=== PATIENT | female | born 1980 | race Caucasian/White ===

== ENCOUNTER 2017-06-08 05:28 | Day surgery (SDC) | payer BC ==
[~2017-06-08] VITALS: Ht 165.1 cm; Wt 93.0 kg
--- NOTE | ~2017-06-08 | O ---
[facility] [place] [address] [place] [address] OPERATIVE REPORT Name: CHRISTOPHER GREENWOOD I Room #: DEP [facility]..#: [id number] Admission: 06/08/17 Attend Phys: Miles Crisostomo MD Discharge: 06/08/17 Date of : 82 Report #: [id number] THIS REPORT FOR: //name// CC: Jo Ann Crisostomo DATE OF SERVICE: 06/08/2017 PREOPERATIVE DIAGNOSIS: Open wound in the left upper calf. POSTOPERATIVE DIAGNOSIS: Open wound in the left upper calf. PROCEDURES PERFORMED: Split thickness skin graft to open wound. Donor site left lateral upper thigh. SURGEON: Miles Crisostomo MD ANESTHESIA: General anesthesia. ESTIMATED BLOOD LOSS: 5 mL. PROCEDURE NOTE: With the patient under general anesthesia in the lateral position with endotracheal tube, the left leg was prepped and draped in sterile fashion. The wound was evaluated and is clean. There was a little and small amount of necrotic tissues underneath there, which I debrided. I do not see any track or pockets under this area. In this area, the patient is having some burning pain, probably just because of the movement here. Dermatome was then used to harvest the skin. The dermatome machine; however failed. It did not have any power going to it. There were no other dermatome in the hospital. Waited until the dermatome machine was obtained from another hospital. Once this was done, skin graft was then obtained. The thickness was appropriate measured. Two separate pieces were taken from the left upper thigh. This was then meshed with 1.5 to 1 mesher. The skin graft was placed over the wound and secured with 5-0 nylon suture. It covered the defect well. Four of the nylon sutures were left along. A moistened gauze was placed over the skin graft and wet cotton ball was placed over this area and the 5-0 nylon was tied down. 4 x 4 was placed over this area, ABD was placed over this area, and the left calf was wrapped with Kerlix and Abdelrahman wrap. The donor site is hemostatic. Two OpSites were placed over this. The patient tolerated the procedure well and was taken to recovery room. By: [id number] Miles Crisostomo MD /nt
[~2017-06-08 05:28] MED LIST: DILAUDID2 MG PO; EXCEDRIN CAPLE1 EACH PO
[2017-06-08 10:23] VITALS: BP 123/78
[2017-06-08] MEDS ORDERED: DILAUDID2 MG PO (15:07)
[2017-06-08 15:41] VITALS: BP 123/78
== END 2017-06-08 16:14 | disposition home or self-care (01) ==
LOC: OR 05:28 → TBA 05:28 → OR 10:51
DX: S81.802A Unspecified open wound, left lower leg, initial encounter (principal); K21.9 Gastro-esophageal reflux disease without esophagitis; F32.89 Other specified depressive episodes; F41.8 Other specified anxiety disorders; Z87.891 Personal history of nicotine dependence; Z90.710 Acquired absence of both cervix and uterus; Z98.890 Other specified postprocedural states; Z88.6 Allergy status to analgesic agent; Z79.82 Long term (current) use of aspirin; X58.XXXA Exposure to other specified factors, initial encounter; Y93.89 Activity, other specified; Y92.89 Other specified places as the place of occurrence of the external cause; Y99.8 Other external cause status
CPT/HCPCS: 50010; 50101; 50386; 50403; 54016; 56526; 62110; 62900; 70005